=== PATIENT | female | born 1960 | race African-American/Black ===

== ENCOUNTER 2018-05-24 09:57 | Day surgery (SDC) | payer BC ==
[~2018-05-24 09:57] MED LIST: BALANCED SALT IRRIG OPHTH SOLN 15 ML BOTTLE.; CHONDROIT-SOD-HYALURONATE KIT.; CHONDROITIN-SOD-HYALURONATE 0.5 ML DISP.SYRIN.; LIDOCAINE 1% PF 2 ML VIAL.; LIDOCAINE 1% PF 2 ML VIAL. ID; MORPHINE SULFATE 2 MG/ML DISP.SYRIN. IV; ONDANSETRON PF 4 MG/2 ML VIAL. IV; PROCHLORPERAZINE 10 MG/2 ML VIAL. IV; fentaNYL PF VIAL 100 MCG/2 ML VIAL IV
[2018-05-24] MEDS: IV RINGERS,LACTATED 1000ML 1,000 ML IV (10:36)
[2018-05-24] MEDS: PROPARACAINE 0.5% OPHTH SOLUTION 15ML BOTTLE. OD (10:39)
[2018-05-24 10:41] LABS: POC GLUCOSE 216 mg/dL (70-99)
[2018-05-24] MEDS: PHENYLEPHRINE 10% OPHTH SOLUTION 5ML BOTTLE. OD ×3 (10:41→10:56)
[2018-05-24] MEDS: CYCLOPENTOLATE 1% OPTH SOLUTION 2ML BOTTLE. OD ×3 (10:44→10:56)
[2018-05-24] MEDS: CIPROFLOXACIN 0.3% OPHTH SOLUTION 5ML BOTTLE. OD (10:57)
[2018-05-24] MEDS ORDERED: IV RINGERS,LACTATED 1000ML 1,000 ML IV (11:07)
[2018-05-24] MEDS ORDERED: ONDANSETRON PF 4 MG/2 ML VIAL. IV (11:15)
[2018-05-24] MEDS ORDERED: fentaNYL PF VIAL 100 MCG/2 ML VIAL IV ×2 (11:15)
[2018-05-24] MEDS ORDERED: PROCHLORPERAZINE 10 MG/2 ML VIAL. IV (11:15)
[2018-05-24] MEDS ORDERED: MORPHINE SULFATE 2 MG/ML DISP.SYRIN. IV (11:15)
[2018-05-24] MEDS: LIDOCAINE 2% JELLY 6ML IN APPLICATOR. MM ×2 (11:21→11:31)
[2018-05-24] MEDS ORDERED: MIDAZOLAM HCL/PF 2 MG/2 ML VIAL. (12:13)
[2018-05-24] MEDS: CHONDROIT-SOD-HYALURONATE KIT. OD ×2 (12:13→12:34)
[2018-05-24] MEDS: CHONDROITIN-SOD-HYALURONATE 0.5 ML DISP.SYRIN. OD ×2 (12:13→12:34)
[2018-05-24] MEDS: LIDOCAINE 1% PF 2 ML VIAL. ID (12:34)
[2018-05-24] MEDS: NEO/POLYMYX/DEXAMETH OPHTH OINTMENT 3.5GM TUBE. (12:34)
== END 2018-05-24 14:00 | disposition home or self-care (01) ==
LOC: SURG 09:57
DX: E10.36 Type 1 diabetes mellitus with diabetic cataract (principal); H25.11 Age-related nuclear cataract, right eye; E10.3493 Type 1 diabetes mellitus with severe nonproliferative diabetic retinopathy without macular edema, bilateral; Z91.048 Other nonmedicinal substance allergy status; E78.00 Pure hypercholesterolemia, unspecified; J45.909 Unspecified asthma, uncomplicated; I10 Essential (primary) hypertension; Z98.890 Other specified postprocedural states; E03.9 Hypothyroidism, unspecified; Z79.4 Long term (current) use of insulin; Z79.899 Other long term (current) drug therapy
CPT/HCPCS: 66982; 82962; C1780; J0171; J0690; J1580; J2250

== ENCOUNTER 2018-06-14 10:23 | Day surgery (SDC) | payer BC ==
[~2018-06-14] VITALS: Ht 167.6 cm; Wt 104.3 kg
[~2018-06-14 10:23] MED LIST changes: -BALANCED SALT IRRIG OPHTH SOLN 15 ML BOTTLE.; +BALANCED SALT IRRIG OPHTH SOLN 15 ML BOTTLE. ONE; -CHONDROIT-SOD-HYALURONATE KIT.; +CHONDROIT-SOD-HYALURONATE KIT. ONE; -CHONDROITIN-SOD-HYALURONATE 0.5 ML DISP.SYRIN.; +CHONDROITIN-SOD-HYALURONATE 0.5 ML DISP.SYRIN. ONE; +INSU100I13 SQ; +INSU100V31 SQ; +LEVO100T5 PO; -LIDOCAINE 1% PF 2 ML VIAL.; -LIDOCAINE 1% PF 2 ML VIAL. ID; +LIDOCAINE 1% PF 2 ML VIAL. ONE; +LIDOCAINE 2% JELLY 6ML IN APPLICATOR. ONE; +LISI1TAB5 PO; -MORPHINE SULFATE 2 MG/ML DISP.SYRIN. IV; +NEO/POLYMYX/DEXAMETH OPHTH OINTMENT 3.5GM TUBE. ONE; -ONDANSETRON PF 4 MG/2 ML VIAL. IV; +PITA2TAB2 PO; -PROCHLORPERAZINE 10 MG/2 ML VIAL. IV; -fentaNYL PF VIAL 100 MCG/2 ML VIAL IV
[2018-06-14] MEDS ORDERED: PROPARACAINE 0.5% OPHTH SOLUTION 15ML BOTTLE. OS ONE (10:26)
[2018-06-14] MEDS ORDERED: LIDOCAINE 2% JELLY 6ML IN APPLICATOR. MM SCH (10:27)
[2018-06-14] MEDS ORDERED: CIPROFLOXACIN 0.3% OPHTH SOLUTION 5ML BOTTLE. OS ONE (10:45)
[2018-06-14] MEDS: PHENYLEPHRINE 10% OPHTH SOLUTION 5ML BOTTLE. OS SCH ×3 (11:06→11:16)
[2018-06-14] MEDS: CYCLOPENTOLATE 1% OPTH SOLUTION 2ML BOTTLE. OS SCH ×3 (11:06→11:16)
[2018-06-14] MEDS ORDERED: MIDAZOLAM HCL/PF 2 MG/2 ML VIAL. ONE (12:16)
--- NOTE | 2018-06-14 13:19 | OP ---
DATE OF SURGERY: 06/14/2018 PREOPERATIVE DIAGNOSIS: Cataract of the left eye. PROCEDURE: Phacoemulsification with posterior chamber intraocular lens implantation of the left eye. INDICATIONS: Painless progressive visual loss and visually significant cataract with difficulty reading and driving and difficulty visualizing the diabetic fundus. DESCRIPTION OF PROCEDURE: The left eye was prepped with Betadine in the usual sterile fashion and draped. A paracentesis was performed followed by instillation of 1% preservative-free lidocaine with a note that topical lidocaine jelly had been placed after the Betadine. Viscoelastic was injected in the anterior chamber and a temporal clear corneal incision was performed. A capsulorrhexis was performed followed by hydrodissection. A modified stop and chop fashion was used with the phacoemulsification handpiece to remove the nucleus. The I/A handpiece was used to remove the remainder of the cortex. The viscoelastic was injected in the capsular bag and an Og model [id number] with a power of 18.0 diopters was placed into the capsular bag. Balanced salt solution was used to hydrate the corneal wounds and the viscoelastic evacuated with the I/A handpiece. Once no leak was noted, Maxitrol was placed on the eye and the eye shield and the patient was sent to the recovery room uneventfully. LUISA CUELLO MD DR: RANDY/albaro JOB#: [id number] / [id number]
[2018-06-14 13:20] VITALS: BP 165/76
== END 2018-06-14 13:38 | disposition home or self-care (01) ==
LOC: SURG 10:23 → EDUNIT# 12:00 → SURG 13:38
PROVIDERS: ATTEND Ophthalmology
DX: E10.36 Type 1 diabetes mellitus with diabetic cataract (principal); H25.11 Age-related nuclear cataract, right eye; I10 Essential (primary) hypertension; E03.9 Hypothyroidism, unspecified; Z79.4 Long term (current) use of insulin; Z79.899 Other long term (current) drug therapy; Z91.048 Other nonmedicinal substance allergy status; E78.00 Pure hypercholesterolemia, unspecified; J45.909 Unspecified asthma, uncomplicated
CPT/HCPCS: 66984; 82962; J0171; J0690; J1580; J2250; V2632; C1780